=== PATIENT | male | born 1965 | race Two or more races ===

== ENCOUNTER 2018-11-15 12:01 | Emergency (ER) | payer SELFPAY ==
[~2018-11-15] VITALS: Ht 160 cm; Wt 81.8 kg
[2018-11-15 12:23] VITALS: BP 164/98
[2018-11-15] MEDS ORDERED: TETanus/Pertussis (Acell)/Diphther VAC/PF (Tdap-Adult) 0.5ml syringe IM ONE (13:40)
[2018-11-15] MEDS ORDERED: AMOX-422 PO (13:43)
[2018-11-15] MEDS ORDERED: HYDR-3965 PO (13:43)
== END 2018-11-15 14:46 | disposition home or self-care (01) ==
LOC: ER 12:02
DX: S62.635B Displaced fracture of distal phalanx of left ring finger, initial encounter for open fracture (principal); Z79.2 Long term (current) use of antibiotics; Z79.899 Other long term (current) drug therapy; W26.8XXA Contact with other sharp object(s), not elsewhere classified, initial encounter; Y93.89 Activity, other specified; Y92.69 Other specified industrial and construction area as the place of occurrence of the external cause; Y99.8 Other external cause status
CPT/HCPCS: 12001; 29130; 73130; 90471; 99283